=== PATIENT | female | born 1995 | race Hispanic/Latino ===

== ENCOUNTER 2023-10-24 08:13 | Emergency (ER) | payer OTHER ==
[~2023-10-24] VITALS: Ht 175.3 cm; Wt 72.1 kg
[2023-10-24 08:39] LABS: BASOPHILS 0.3 % (0-2); EOSINOPHILS 2.1 % (0-6); HEMATOCRIT 38.4 % (35.0-50.0); HEMOGLOBIN 12.8 g/dL (12.0-18.0); LYMPHOCYTES 18.6 % (24-44); MCH 30.3 (27-36); MCHC 33.4 g/dl (30-36); MCV 90.6 fl (81-99); MONOCYTES 7.7 % (0-12); NEUTROPHILS 71.3 % (39-80); PLATELET COUNT 203 K/uL (140-440); RBC 4.23 M/ul (4.3-5.7); RDW 13.6 (10.5-15.0)
[2023-10-24 08:56] LABS: ALBUMIN 3.4 g/dL (3.4-5.0); ALBUMIN/GLOBULIN RATIO 0.89 (1.1-2.4); ANION GAP 12.8 (7-21); BILIRUBIN, TOTAL 0.2 ng/dL (0.2-1.0); BUN/CREATININE RATIO 11.9 (6.0-28.6); CALCIUM 8.5 mg/dL (8.5-10.1); CREATININE, SERUM 0.84 mg/dL (0.55-1.02); POTASSIUM 3.8 mmol/L (3.5-5.1); PROTEIN, TOTAL 7.2 g/dL (6.4-8.2)
[2023-10-24 09:29] LABS: BILIRUBIN, URINE NEGATIVE (negative); BLOOD/HGB, URINE NEGATIVE (Negative); KETONE, URINE NEGATIVE (Negative); LEUK ESTERASE, URINE NEGATIVE (negative); NITRITE, URINE NEGATIVE (negative)
[2023-10-24] MEDS ORDERED: CIPRO500 MG PO (10:16)
[2023-10-24] MEDS ORDERED: ONDANSETRON ODT8 MG PO (10:16)
[2023-10-24 10:23] VITALS: BP 109/68
== END 2023-10-24 10:24 | disposition home or self-care (01) ==
LOC: ED 08:13
PROVIDERS: Emergency Medicine
DX: A08.8 Other specified intestinal infections (principal)
CPT/HCPCS: 36415; 80053; 81003; 83690; 83735; 84703; 85025; 99284

== ENCOUNTER 2024-07-29 10:36 | Inpatient (IN) | payer OTHER ==
[~2024-07-29] VITALS: Ht 165.1 cm; Wt 95.3 kg
[~2024-07-29 10:36] MED LIST: CIPRO500 MG PO; ONDANSETRON ODT8 MG PO
[2024-07-30] MEDS ORDERED: LACTATED RINGER'S 1,000 ML IV SCH (00:30)
[2024-07-30] MEDS ORDERED: miSOPROStoL 25 MCG TAB PV SCH (00:30)
[2024-07-30] MEDS ORDERED: MAGNESIUM HYDROXIDE/AL HYDROX 30 ML CUP PO PRN (00:30)
[2024-07-30] MEDS ORDERED: CALCIUM CARBONATE 500 MG CHEW PO PRN (00:30)
[2024-07-30] MEDS ORDERED: LACTATED RINGER'S 1,000 ML IV PRN (00:30)
[2024-07-30] MEDS ORDERED: OXYTOCIN/0.9 % SODIUM CHLORIDE 30 UNITS/500 ML BAG IV SCH ×2 (00:30→09:15)
[2024-07-30 00:46] LABS: HEMATOCRIT 36.4 % (34.1-44.9); HEMOGLOBIN 12.2 g/dL (11.2-15.7); MCH 29.9 PG (25.6-32.2); MCHC 33.5 g/dL (32.2-35.5); MCV 89.2 fL (79.4-94.8); RBC 4.08 M/uL (3.93-5.22)
[2024-07-30 01:04] LABS: AMPHETAMINES, URINE NEGATIVE (NEGATIVE); BARBITURATES, URINE NEGATIVE (NEGATIVE); BENZODIAZEPINE, URINE NEGATIVE (NEGATIVE); BUPRENORPHINE, URINE NEGATIVE (NEGATIVE); CANNABINOID, URINE NEGATIVE (NEGATIVE); COCAINE, URINE NEGATIVE (NEGATIVE); ECSTASY, URINE NEGATIVE (NEGATIVE); FENTANYL, URINE NEGATIVE (NEGATIVE); METHADONE, URINE NEGATIVE (NEGATIVE); OPIATES, URINE NEGATIVE (NEGATIVE); OXYCODONE, URINE NEGATIVE (NEGATIVE); PHENCYCLIDINE, URINE NEGATIVE (NEGATIVE)
[2024-07-30 01:27] LABS: ABO O; ANTIBODY SCREEN NEGATIVE; RH POSITIVE
[2024-07-30] MEDS ORDERED: fentaNYL citrate 100 MCG/2 ML VIAL ONE (07:58)
[2024-07-30] MEDS ORDERED: ROPIVACAINE 0.2% 200 ML BAG ONE ×2 (07:58→08:17)
[2024-07-30] MEDS ORDERED: Ropivacaine HCl 20 MG/10 ML AMP ONE (08:18)
--- NOTE | 2024-07-30 12:57 | PR ---
[facility] [address] [facility] [place] [address] Signed Progress Notes IP Datetime Report Generated by CPN: 07/30/2024 12:57 PROGRESS NOTES: [id number] Impression: Normal Progression of Labor; Reassuring Heart Rate Procedures: Sterile Vag Exam Other Procedures: exam per RN Plan: Continue Present Management; Anticipate Vaginal Delivery VITAL SIGNS: [id number] Vital Signs: Reviewed; Within Normal Limits EXAM: [id number] Dilatation: 7.0 Effacement: 90 Station: -2 Contractions: q 1-2 min MEMBRANES: [id number] Comments: Pt seen and examined. Making consistent progress. FHT reassuring. Pt declines AROM at this time and will continue to monitor. All questions answered FETUS A: [id number] FHR Baseline: 125 Variability: Moderate 6-25bpm Accelerations: 15X15 Decelerations: None FHR Category: Category I Presentation: Vertex Comments on Fetus A: No evidence of metabolic acidosis FETUS B: [id number] Signing Physician: Perez Walton DO Copies: ~ *Electronically Signed* 07/30/24 1257 PEREZ WALTON (ERIC) DO PATIENT NAME: MICAH HERNANDEZ PROGRESS NOTE DATE OF : 97 PHYSICIAN: PEREZ WALTON) DO RPT #: [id number] REPORT IS CONFIDENTIAL AND NOT TO BE RELEASED WITHOUT AUTHORIZATION
[2024-07-30] MEDS ORDERED: ondansetron HCL 4 MG/2 ML VIAL IV PRN (16:30)
--- NOTE | 2024-07-30 16:40 | PR ---
[facility] [address] [place], [place] [address] Signed Progress Notes IP Datetime Report Generated by HONG: 07/30/2024 16:40 PROGRESS NOTES: [id number] Impression: Normal Progression of Labor; Reassuring Heart Rate Procedures: Sterile Vag Exam Other Procedures: exam per RN Plan: Continue Present Management; Anticipate Vaginal Delivery Other Plans: maternal repositioning to encourage descent Other Informed Consents: AROM VITAL SIGNS: [id number] Vital Signs: Reviewed; Within Normal Limits EXAM: [id number] Dilatation: 8.0 Effacement: 90 Station: -3 Contractions: q 1-2 minutes MEMBRANES: [id number] Comments: Pt seen and examined. Some nausea and vomiting. On cervical exam, pt now 8/90/-3. Head was initially well applied and we discussed AROM, however in preparing for AROM fingers / hand were palpated. Recommended awaiting better application of vertex. Bedside US was performed confirming INDER position. RN will perform positional maneuvers to encourage descent. Will recheck cervix and perform controlled AROM when head well applied. Discussed possible addition of pitocin if needed. Discussed if SROM w/ hand or arm presentation would require emergent C/S. Pt understands and agrees with plan of care. FETUS A: [id number] FHR Baseline: 125 Variability: Moderate 6-25bpm Accelerations: 15X15 Decelerations: None FHR Category: Category I Presentation: Vertex Comments on Fetus A: No evidence of metabolic acidosis FETUS B: [id number] Signing Physician: Perez Walton DO *Electronically Signed* 07/30/24 1640 PEREZ WALTON) DO PATIENT NAME: MICAH HERNANDEZ PROGRESS NOTE DATE OF : 97 PHYSICIAN: PEREZ WALTON DO (JD) RPT #: [id number] REPORT IS CONFIDENTIAL AND NOT TO BE RELEASED WITHOUT AUTHORIZATION
--- NOTE | 2024-07-30 17:19 | PR ---
[facility] [address] [place], [place] [address] Signed Progress Notes IP Datetime Report Generated by HONG: 07/30/2024 17:19 PROGRESS NOTES: [id number] Impression: Normal Progression of Labor; Reassuring Heart Rate Procedures: Artificial ROM Other Procedures: exam per RN Plan: Continue Present Management; Anticipate Vaginal Delivery Other Plans: maternal repositioning to encourage descent Informed Consent Obtain: Vaginal Delivery Other Informed Consents: AROM VITAL SIGNS: [id number] Vital Signs: Reviewed; Within Normal Limits EXAM: [id number] Dilatation: 8.0 Effacement: 90 Station: 0 Contractions: q 1-2 minutes MEMBRANES: [id number] Comments: Pt seen and examined. Pt was in "carley pose" and on exam vertex well applied w/ contraction. After verbal consent obtained, AROM easily performed for moderate amount of clear fluid. Excellent descent noted and no hand / cord presented. Will continue in carley pose and anticiapte . All questions answered. FETUS A: [id number] FHR Baseline: 125 Variability: Moderate 6-25bpm Accelerations: 15X15 Decelerations: None FHR Category: Category I Presentation: Vertex Comments on Fetus A: No evidence of metabolic acidosis FETUS B: [id number] Signing Physician: Perez Walton DO Copies: ~ *Electronically Signed* 07/30/24 2880 PEREZ WALTON (ERIC) DO PATIENT NAME: MICAH HERNANDEZ PROGRESS NOTE DATE OF : 97 PHYSICIAN: PEREZ WALTON) DO RPT #: [id number] REPORT IS CONFIDENTIAL AND NOT TO BE RELEASED WITHOUT AUTHORIZATION
--- NOTE | 2024-07-30 20:46 | PR ---
[facility] [address] [place], [place] [address] Signed Progress Notes IP Datetime Report Generated by CPN: 07/30/2024 20:46 PROGRESS NOTES: [id number] Impression: Reassuring Heart Rate Procedures: Intrauterine Pressure Catheter; Sterile Vag Exam Other Procedures: exam per RN Plan: Continue Present Management Other Plans: maternal repositioning to encourage descent Informed Consent Obtain: Vaginal Delivery Other Informed Consents: AROM VITAL SIGNS: [id number] Vital Signs: Reviewed; Within Normal Limits EXAM: [id number] Dilatation: 8.0 Effacement: 90 Station: -1 Contractions: q 1-4 minutes MEMBRANES: [id number] Comments: Pt seen and examined. Cervix unchanged. Molding of the vertex noted and INDER position confirmed. Reviewed EFW and position (passenger), adequate pelvis (passage), and recommended IUPC to further evaluate adequacy of contractions ([place]). Will consider pitocin augmentation. Lates noted w/ pt flat and resolved w/ repositioning. Will monitor. FETUS A: [id number] FHR Baseline: 125 Variability: Moderate 6-25bpm Accelerations: 15X15 Decelerations: None FHR Category: Category I Presentation: Vertex Comments on Fetus A: No evidence of metabolic acidosis FETUS B: [id number] Signing Physician: Perez Santana DO Copies: ~ *Electronically Signed* 07/30/242045 PEREZ SANTANA (ERIC) DO PATIENT NAME: MICAH HERNANDEZ PROGRESS NOTE DATE OF : 97 PHYSICIAN: PEREZ SANTANA (JD) DO RPT #: [id number] REPORT IS CONFIDENTIAL AND NOT TO BE RELEASED WITHOUT AUTHORIZATION
[2024-07-30] MEDS ORDERED: OXYTOCIN/0.9 % SODIUM CHLORIDE 500 ML IV SCH (21:45)
--- NOTE | 2024-07-30 23:38 | PR ---
[facility] [address] [place], [place] [address] Signed Progress Notes IP Datetime Report Generated by HONG: 07/30/2024 23:38 PROGRESS NOTES: [id number] Impression: Normal Progression of Labor; Reassuring Heart Rate Procedures: Intrauterine Pressure Catheter; Sterile Vag Exam Other Procedures: exam per RN Plan: Continue Present Management; Augmentation Other Plans: maternal repositioning to encourage descent Informed Consent Obtain: Vaginal Delivery Other Informed Consents: AROM VITAL SIGNS: [id number] Vital Signs: Reviewed; Within Normal Limits EXAM: [id number] Dilatation: 9.0 Effacement: 90 Station: -1 Contractions: IUPC not working; RN requested reinsertion MEMBRANES: [id number] ROM Note: moderate to large amt of amniotic fluid came out with placement of IUPC Comments: Pt seen and examined. IUPC stopped working and troubleshooting attempts did not work. IUPC removed and new one inserted w/out difficulty. On exam, cervix now 9cm. FHT reassuring (Cat 1). Will continue repositioning and increasing pitocin per protocol. Pt desires to continue with trial of vaginal delivery. Anticipate successful . All questions answered. FETUS A: [id number] FHR Baseline: 125 Variability: Moderate 6-25bpm Accelerations: 15X15 Decelerations: None FHR Category: Category I Presentation: Vertex Comments on Fetus A: No evidence of metabolic acidosis FETUS B: [id number] Signing Physician: Perez Walton DO *Electronically Signed* 07/30/24 3787 PEREZ WALTON (ERIC) DO PATIENT NAME: MICAH HERNANDEZ PROGRESS NOTE DATE OF : 97 PHYSICIAN: PERZE WALTON) DO RPT #: [id number] REPORT IS CONFIDENTIAL AND NOT TO BE RELEASED WITHOUT AUTHORIZATION
[2024-07-31] MEDS ORDERED: ROPIVACAINE 0.2% 200 ML BAG ONE (03:16)
[2024-07-31] MEDS ORDERED: LACTATED RINGER'S 500 ML IV PRN (04:00)
[2024-07-31] MEDS ORDERED: ROPIVACAINE 0.2% 200 ML BAG EPIDURAL SCH ×2 (04:00)
[2024-07-31] MEDS ORDERED: ePHEDrine sulfate 5 MG/ML SYRINGE IV PRN (04:00)
--- NOTE | 2024-07-31 04:33 | PR ---
[facility] [address] [place], [place] [address] Signed Progress Notes IP Datetime Report Generated by HONG: 07/31/2024 04:33 PROGRESS NOTES: [id number] Impression: Reassuring Heart Rate Procedures: Sterile Vag Exam Other Procedures: exam per RN Plan: Continue Present Management Other Plans: maternal repositioning to encourage descent Informed Consent Obtain: Vaginal Delivery Other Informed Consents: AROM VITAL SIGNS: [id number] Vital Signs: Reviewed; Within Normal Limits EXAM: [id number] Dilatation: 9.5 Effacement: 95 Station: -2 Contractions: q 2-3 min, inadequate MEMBRANES: [id number] ROM Note: moderate to large amt of amniotic fluid came out with placement of IUPC Comments: Pt seen and examined. Doing well. Afebrile. Pitocin at 4 and contractions inadequate. Cat 1 tracing through the night. On exam, pt now 9.5cm and 0 station and INDER position palpated. Some molding / caput. Reviewed slow progress of labor but with reassuring FHT, no s/sx of intraamniotic infection, adequat pelvis, and EFW. Recommend continued trial of vaginal delivery and pt and partner understand and agree. All questions answered. FETUS A: [id number] FHR Baseline: 125 Variability: Moderate 6-25bpm Accelerations: 15X15 Decelerations: Prolonged FHR Category: Category II Presentation: Vertex Comments on Fetus A: No evidence of metabolic acidosis FETUS B: [id number] Signing Physician: Perez Walton DO *Electronically Signed* 07/31/24 0433 PEREZ WALTON) DO PATIENT NAME: MICAH HERNANDEZ PROGRESS NOTE DATE OF : 97 PHYSICIAN: PEREZ WALTON) DO RPT #: [id number] REPORT IS CONFIDENTIAL AND NOT TO BE RELEASED WITHOUT AUTHORIZATION
--- NOTE | 2024-07-31 07:00 | PR ---
[facility] [address] [place], [place] [address] Signed Progress Notes IP Datetime Report Generated by CPN: 07/31/2024 07:00 PROGRESS NOTES: [id number] Impression: Reassuring Heart Rate Procedures: Sterile Vag Exam Other Procedures: exam per RN Plan: Continue Present Management Other Plans: maternal repositioning to encourage descent Informed Consent Obtain: Vaginal Delivery; Section Delivery Other Informed Consents: AROM VITAL SIGNS: [id number] Vital Signs: Reviewed; Within Normal Limits EXAM: [id number] Dilatation: 10.0 Effacement: 95 Station: 0 Contractions: q 1- 3 minutes MEMBRANES: [id number] ROM Note: moderate to large amt of amniotic fluid came out with placement of IUPC Comments: Pt seen and examined. Feeling more pelvic pressure. Thin lip of cervix noted on exam and easily reduced w/ contraction. Decel w/ cervix check but again now recovered. Discussed 2nd stage of labor and prolonged 1st stage. Will proceed with trial of pushing. FETUS A: [id number] FHR Baseline: 125 Variability: Minimal - >Undetectable to <=5bpm Accelerations: 15X15 Decelerations: Variable FHR Category: Category II Presentation: Vertex Comments on Fetus A: No evidence of metabolic acidosis FETUS B: [id number] Signing Physician: Perez Walton DO Copies: ~ *Electronically Signed* 07/31/24 0700 PEREZ WALTON (ERIC) DO PATIENT NAME: MICAH HERNANDEZ PROGRESS NOTE DATE OF : 97 PHYSICIAN: PEREZ WALTON) DO RPT #: [id number] REPORT IS CONFIDENTIAL AND NOT TO BE RELEASED WITHOUT AUTHORIZATION
[2024-07-31] MEDS ORDERED: MAGNESIUM HYDROXIDE 30 ML UDC PO PRN (09:30)
[2024-07-31] MEDS ORDERED: HYDROCODONE/ACETA 5/325 TAB PO PRN (09:30)
[2024-07-31] MEDS ORDERED: OXYCODONE/APAP 5/325 TAB PO PRN (09:30)
[2024-07-31] MEDS ORDERED: OXYTOCIN/0.9 % SODIUM CHLORIDE 500 ML IV SCH (09:30)
[2024-07-31] MEDS ORDERED: MAGNESIUM HYDROXIDE/AL HYDROX 30 ML CUP PO PRN (09:30)
[2024-07-31] MEDS ORDERED: OXYCODONE HCL 5 MG TAB PO PRN (09:30)
[2024-07-31] MEDS ORDERED: BENZOCAINE 60 ML AEROSOL TOP PRN (09:30)
[2024-07-31] MEDS ORDERED: IBUPROFEN 600 MG TAB PO PRN (09:30)
[2024-07-31] MEDS ORDERED: HYDROCORTISONE ACETATE 25 MG SUPP PR PRN (09:30)
[2024-07-31] MEDS ORDERED: WITCH HAZEL/GLYCERIN 1 EA PAD TOP PRN (09:30)
[2024-07-31] MEDS ORDERED: ACETAMINOPHEN 325 MG TAB PO PRN (09:30)
[2024-07-31] MEDS ORDERED: CALCIUM CARBONATE 500 MG CHEW PO PRN (09:30)
[2024-07-31] MEDS ORDERED: SENNOSIDES/DOCUSATE 1 EA TAB PO SCH (21:00)
[2024-08-01 05:53] LABS: HEMATOCRIT 33.3 % (34.1-44.9); HEMOGLOBIN 10.9 g/dL (11.2-15.7); MCH 30.1 PG (25.6-32.2); MCHC 32.7 g/dL (32.2-35.5); RBC 3.62 M/uL (3.93-5.22)
== END 2024-08-01 18:46 | disposition home or self-care (01) | DRG 807 ==
LOC: FBC 07-30
PROVIDERS: ADMIT Obstetrics & Gynecology; ATTEND Obstetrics & Gynecology
PROC: 10E0XZZ Delivery of Products of Conception, External Approach (ICD-10-PCS; principal; 2024-07-30)
PROC: 10H07YZ Insertion of Other Device into Products of Conception, Via Natural or Artificial Opening (ICD-10-PCS; 2024-07-30)
PROC: 0HQ9XZZ Repair Perineum Skin, External Approach (ICD-10-PCS; 2024-07-30)
PROC: 3E0R3BZ Introduction of Anesthetic Agent into Spinal Canal, Percutaneous Approach (ICD-10-PCS; 2024-07-30)
PROC: 00HU33Z Insertion of Infusion Device into Spinal Canal, Percutaneous Approach (ICD-10-PCS; 2024-07-30)
PROC: 3E0P7VZ Introduction of Hormone into Female Reproductive, Via Natural or Artificial Opening (ICD-10-PCS; 2024-07-30)
DX: O69.81X0 Labor and delivery complicated by cord around neck, without compression, not applicable or unspecified (principal); Z37.0 Single live birth; O48.0 Post-term pregnancy; O70.0 First degree perineal laceration during delivery; Z3A.41 41 weeks gestation of pregnancy
CPT/HCPCS: 36415; 80307; 82803; 85027; 86850; 86900; 86901; A9270; J2405; J2795; J7121